=== PATIENT | female | born 1950 | race Caucasian/White ===

== ENCOUNTER → 2016-08-03 | Outpatient (CLI) | payer MEDICARE, OTHER ==
--- NOTE | 2016-08-03 17:08 | BD ---
EXAMINATION TYPE: MG DEXA axial skeleton. DATE OF EXAM: 08/03/2016 COMPARISON: 2012 CLINICAL HISTORY: post menopausal Height: 5'1 1/2 Weight: 184 FRAX RISK QUESTIONS: Alcohol (3 or more units per day): no Family History (Parent hip fracture): no Glucocorticoids (More than 3mos): no (Ex: prednisone, prednisolone, methylprednisolone, dexamethasone, and hydrocortisone). History of Fracture in Adulthood: no Secondary Osteoporosis: 1. Type 1 Diabetes: no 2. Hyperthyroidism: no 3. Menopause before 45: no 4. Malnutrition: no 5. Chronic liver disease: no Rheumatoid Arthritis: no Current Tobacco Use: no RISK FACTORS HISTORY OF: Postmenopausal woman: MEDICATIONS: Thyroid Medications: Which medication: Synthroid How Lon years Additional Medications: blood pressure, acid reflux Additional History: post menopausal, breast cancer 2012 EXAM MEASUREMENTS: Bone mineral densitometry was performed using the [employer] System. Bone mineral density as measured about the Lumbar spine is: ----- L1-L4(G/cm2): 1.204 T Score Values are as follows: ----- L2: -0.7 ----- L3: 0.0 ----- L4: 0.9 ----- L1-L4: 0.2 Bone mineral density has: Increased 2.6% since study of: 07/11/2012 Bone mineral density about the R hip (g/cm2): 0.935 Bone mineral density about the L hip (g/cm2): 0.924 T Score values are as follows: -----R Neck: -0.7 -----L Neck: -0.8 -----R Total: 0.1 -----L Total: 0.3 Bone mineral density has: Increased 2.8% since study of: 07/11/2012 IMPRESSION: Normal (Values between +1 and -1 indicate normal bone mass). Consider repeating this study in 5 year s or sooner if there is some new clinical indication. NOTE: T-SCORE=SD OF THE YOUNG ADULT MEAN.
== END | disposition home or self-care (01) ==
LOC: RADBDWWP 07:31
PROVIDERS: ATTEND Obstetrics & Gynecology
DX: N95.1 Menopausal and female climacteric states (principal)
CPT/HCPCS: 77080

== ENCOUNTER → 2016-08-18 | Outpatient (CLI) | payer MEDICARE, OTHER ==
--- NOTE | 2016-08-18 08:53 | CT ---
EXAMINATION TYPE: CT shoulder LT wo con DATE OF EXAM: 08/18/2016 COMPARISON: NONE HISTORY: Lt shoulder pain, no known injury CT DLP: [address] of the left shoulder with reconstruction imaging. TECHNIQUE: Unenhanced CT of the left shoulder was performed with bone and soft tissue window settings submitted in the axial coronal and sagittal planes. At a separate workstation 3-D TR imaging was ob tained. FINDINGS: I do not see evidence for fracture or dislocation. Subacromial spurring is noted resulting in impingement. AC joint arthropathy with mild spurring and a vacuum changes seen. Mild spur formati on involving the greater humeral tuberosity. Glenohumeral joint space is well-preserved. No obvious rotator cuff abnormality seen on CT. MRI is much more sensitive and specific to rotator cuff pathol ogy. No soft tissue masses appreciated. Visualized portions of the right lung demonstrate right api rohith scarring. IMPRESSION: 1. AC joint arthropathy with subacromial spurring resulting in a degree of impingement. No evidence f or fracture or dislocation or bony lesion.
== END | disposition home or self-care (01) ==
LOC: RADCTMAIN 08:05
PROVIDERS: ATTEND Orthopaedic Surgery
DX: M75.42 Impingement syndrome of left shoulder (principal); M75.92 Shoulder lesion, unspecified, left shoulder; M12.812 Other specific arthropathies, not elsewhere classified, left shoulder

== ENCOUNTER → 2016-11-24 | Outpatient (CLI) | payer MEDICARE, OTHER ==
--- NOTE | 2016-11-24 07:48 | US ---
EXAMINATION TYPE: US abdomen complete DATE OF EXAM: 11/24/2016 COMPARISON: NONE CLINICAL HISTORY: R10 Abd pain, K59.00 Constipation. larger habitus EXAM MEASUREMENTS: Liver Length: 14.3 cm Gallbladder Wall: 0.3 cm CBD: 0.6 cm Spleen: 9.1 cm Right Kidney: 9.4 x 4.0 x 5.1 cm Left Kidney: 11.2 x 5.0 x 4.3 cm Pancreas: Pancreatic head and tail are not well visualized due to overlying bowel gas Liver: wnl Gallbladder: wnl Evidence for sonographic Staley's sign: no CBD: wnl Spleen: wnl Right Kidney: wnl Left Kidney: wnl Upper IVC: wnl as seen Abd Aorta: wnl as seen The liver is homogenous. The intrahepatic portion of the IVC and proximal abdominal aorta are within normal limits. There is no evidence of cholelithiasis. Common bile duct is unremarkable. The visu alized portions of the pancreas are homogenous. The spleen is unremarkable. Kidneys are symmetric a nd free of hydronephrosis. No renal lesions are seen. IMPRESSION: Unremarkable abdominal ultrasound other than limited visualization of the pancreas due to overlying bowel gas.
== END | disposition home or self-care (01) ==
LOC: RADUSWWP 06:45
PROVIDERS: ATTEND Family Medicine
DX: R10.9 Unspecified abdominal pain (principal)
CPT/HCPCS: 76700

== ENCOUNTER → 2017-06-10 | Outpatient (CLI) | payer MEDICARE, OTHER ==
[2017-06-10 17:40] LABS: Albumin 4.1 g/dL (3.5-5.0); Calcium 9.6 mg/dL (8.4-10.2); Potassium 3.2 mmol/L (3.5-5.1); Total Bilirubin 0.5 mg/dL (0.2-1.3); Total Protein 6.7 g/dL (6.3-8.2)
== END | disposition home or self-care (01) ==
LOC: LABWHC1 16:38
PROVIDERS: ATTEND Internal Medicine Clinical Cardiac Electrophysiology
DX: E78.2 Mixed hyperlipidemia (principal)
CPT/HCPCS: 36415; 80053; 80061; 83690

== ENCOUNTER 2018-03-17 07:14 | Day surgery (SDC) | payer MEDICARE, OTHER ==
[2018-03-15 10:59] VITALS: BMI 34.0
[~2018-03-17 07:14] MED LIST: LACTATED RINGERS 1,000 ML IV SCH
[2018-03-17] MEDS ORDERED: LIDOCAINE 1% 20 ML VIAL (10MG/ML) FOR IV START INTRADERMA ONE (07:39)
[2018-03-17 07:43] VITALS: RESP 16; TEMP 98.7
[2018-03-17] MEDS ORDERED: PROPOFOL 10 MG/ML 20 ML VIAL IV ONE (08:08)
--- NOTE | 2018-03-17 08:10 | P.GSHP ---
History of Present Illness H&P Date: 03/17/18 Chief Complaint: GERD Patient here today for upper endoscopy. She has a history of previous hiatal hernia repair with possible Kasandra fundoplication. Patient has ongoing reflux however. Denies dysphagia. No rectal bleeding. Past Medical History Past Medical History: Asthma, Cancer, GERD/Reflux, Hypertension Additional Past Medical History / Comment(s): BREAST CA 2012; LT EYE SKIN CA. INCR HEARTBURN, PAIN IN UPPER ABD. History of Any Multi-Drug Resistant Organisms: None Reported Past Surgical History: Breast Surgery, Section, Hysterectomy Additional Past Surgical History / Comment(s): C-S X3. LUMPECTOMY/PARTIAL MASTECTOMY LT BREAST. LT EYE GRAFT SURGERY. HIATAL HERNIA PROC. Past Anesthesia/Blood Transfusion Reactions: Previous Problems w/ Anesthesia Additional Past Anesthesia/Blood Transfusion Reaction / Comment(s): HEART STOPPED X1. Smoking Status: Former smoker - Past Family History Mother Family Medical History: Cancer Additional Family Medical History / Comment(s): PANCREATIC Father Family Medical History: Cancer Medications and Allergies Home Medications Medication Instructions Recorded Confirmed Type Albuterol Sulfate [Proair Hfa] 1 - 2 puff INHALATION Q6HR PRN 03/15/18 03/17/18 History DULoxetine HCL [Cymbalta] 60 mg PO HS 03/15/18 03/17/18 History LORazepam [Ativan] 0.5 mg PO BID PRN 03/15/18 03/17/18 History Levothyroxine Sodium [Synthroid] 25 mcg PO DAILY 03/15/18 03/17/18 History Losartan [Cozaar] 50 mg PO HS 03/15/18 03/17/18 History Pantoprazole Sodium [Protonix] 40 mg PO DAILY 03/15/18 03/17/18 History Spironolactone [Aldactone] 12.5 mg PO DAILY 03/15/18 03/17/18 History Zolpidem [Ambien] 10 mg PO HS PRN 03/15/18 03/17/18 History Allergies Allergy/AdvReac Type Severity Reaction Status Date / Time levofloxacin [From Levaquin] Allergy BONES FELT Verified 03/17/18 07:30 WEAK Penicillins Allergy Swelling Verified 03/17/18 07:30 THROAT, HIVES Surgical - Exam Vital Signs Temp Pulse Resp BP Pulse Ox 98.7 F 89 16 126/93 94 L 01/25/19 07:42 03/17/18 07:42 03/17/18 07:42 03/17/18 07:42 03/17/18 07:42 Physical exam: General: Well-developed, well-nourished HEENT: Normocephalic, sclerae nonicteric Abdomen: Nontender, nondistended Extremities: No edema Neuro: Alert and oriented Assessment and Plan (1) GERD (gastroesophageal reflux disease) Narrative/Plan: Will proceed with upper endoscopy at this time Current Visit: Yes Status: Acute Code(s): K21.9 - GASTRO-ESOPHAGEAL REFLUX DISEASE WITHOUT ESOPHAGITIS SNOMED Code(s): 672069404
--- NOTE | 2018-03-17 08:22 | P.PCN ---
Date of Procedure: 03/17/18 Procedure(s) Performed: Preoperative Dx: GERD Postoperative Dx: Recurrent hiatal hernia, mild gastritis Procedure: EGD with Bx Anesthesia: Sedation Endoscopist: Dr. Alcazar Specimens: Antrum Endoscopic Procedure: The patient was on the endoscopy table in the left decubitus position. The Olympus gastroscope was inserted into the oropharynx and passed under direct visualization to the region of the third portion of the duodenum. From that point the scope was slowly withdrawn inspecting all surfaces carefully. There were no neoplastic inflammatory or polypoid lesions throughout the duodenum. The pylorus was widely patent. The stomach was carefully inspected. There was mild gastritis present. A biopsy of the antrum took place to rule out H. pylori. Retroflexion revealed a recurrent hiatal hernia. There did appear to be some subtle twisting motion of the mucosa to suggest possible previous fundoplication. There was no significant narrowing at that site however. The Z line was 2-3 cm proximal to the diaphragmatic hiatus. The distal esophagus appeared normal. The remainder the esophagus likewise appeared normal. The patient was then taken to the recovery room in stable condition per anesthesia guidelines. Recommendations: Await biopsy results. Continue antiacid therapy.
[2018-03-17 08:53] VITALS: BP 114/65; PULSE 81
== END 2018-03-17 09:09 | disposition home or self-care (01) ==
LOC: ORWHC2ENDO 07:14
PROVIDERS: ATTEND Surgery
DX: K29.50 Unspecified chronic gastritis without bleeding (principal); K21.9 Gastro-esophageal reflux disease without esophagitis; I10 Essential (primary) hypertension; J45.909 Unspecified asthma, uncomplicated; F32.9 Major depressive disorder, single episode, unspecified; E03.9 Hypothyroidism, unspecified; K44.9 Diaphragmatic hernia without obstruction or gangrene; F39 Unspecified mood [affective] disorder; Z85.3 Personal history of malignant neoplasm of breast; Z87.891 Personal history of nicotine dependence; Z88.0 Allergy status to penicillin; Z88.1 Allergy status to other antibiotic agents; Z90.12 Acquired absence of left breast and nipple; Z88.5 Allergy status to narcotic agent; Z79.890 Hormone replacement therapy; Z79.1 Long term (current) use of non-steroidal anti-inflammatories (NSAID); Z79.899 Other long term (current) drug therapy; Z85.828 Personal history of other malignant neoplasm of skin; Z88.3 Allergy status to other anti-infective agents
CPT/HCPCS: 88305; 43239; J2704

== ENCOUNTER → 2018-07-13 | Outpatient (CLI) | payer MEDICARE, OTHER ==
[2018-07-13 18:03] LABS: Anion Gap 8.4 mmol/L (4.00-12.00); Calcium 9.1 mg/dL (8.7-10.3); Carbon Dioxide 23.6 mmol/L (21.6-31.8); LDL Cholesterol,Calculated 82.4 mg/dL (0.0-131.0); Magnesium 1.6 mg/dL (1.5-2.4); Potassium 4.6 mmol/L (3.5-5.5); VLDL Calculation 17.6 mg/dL (5.00-40.00)
== END | disposition home or self-care (01) ==
LOC: LABWHC1 10:25
PROVIDERS: ATTEND Nurse Practitioner Adult Health
DX: E78.5 Hyperlipidemia, unspecified (principal); I10 Essential (primary) hypertension
CPT/HCPCS: 36415; 80048; 80061; 83735

== ENCOUNTER → 2019-11-27 | Day surgery (SDC) | payer MEDICARE, OTHER ==
[2019-11-23 13:21] VITALS: BMI 34.0
[~2019-11-27] MED LIST changes: +LIDOCAINE 1% (10MG/ML) FOR IV START INTRADERMA ONE; +LIDOCAINE 1% INJ 10MG/ML (20 ML MDV) ONE; +PROPOFOL 10 MG/ML 20 ML VIAL IV ONE
[2019-11-27 09:24] VITALS: TEMP 97.2
--- NOTE | 2019-11-27 10:50 | P.PCN ---
Date of Procedure: 11/27/19 Procedure(s) Performed: PREOPERATIVE DIAGNOSIS: GERD, screening POSTOPERATIVE DIAGNOSIS: Small hiatal hernia, mild gastritis, diverticulosis, tortuous colon with poor prep otherwise normal PROCEDURE: 1. EGD with biopsy 2. Colonoscopy ANESTHESIA: MAC SURGEON: Chidi Alcazar M.D. SPECIMENS: Antrum ENDOSCOPIC PROCEDURE: The patient was on the endoscopy table in the left decubitus position. The Olympus gastroscope was inserted into the oropharynx and passed under direct visualization to the region of the third portion of the duodenum. From that point the scope was slowly withdrawn inspecting all surfaces carefully. There were no neoplastic inflammatory or polypoid lesions throughout the duodenum. The pylorus was widely patent. The stomach was carefully inspected. There was mild gastritis present. A biopsy of the antrum took place to rule out H. pylori. Retroflexion revealed a small hiatal hernia. The esophagus was then carefully examined. There were no neoplastic inflammatory or polypoid lesions throughout the visualized esophagus. The patient was kept on the endoscopy table in the left decubitus position. The Olympus colonoscope was inserted into the anus and passed under direct visualization to the base of the cecum. The appendiceal orifice was visualized. From that point the scope was slowly withdrawn inspecting all surfaces carefully. There were no neoplastic inflammatory or polypoid lesions throughout the cecum, ascending, transverse, descending, sigmoid and rectum. There was mild to moderate left sided diverticulosis noted. The patient's prep overall was suboptimal and she had significant tortuosity. Full evaluation mucosal was somewhat limited. Digital rectal examination was normal. The patient was taken to the recovery room in stable condition per anesthesia guidelines. RECOMMENDATIONS: Resume diet. Continue antiacid therapy. Follow-up upper and lower endoscopy 5 years.
[2019-11-27 10:53] VITALS: BP 124/88; PULSE 84; RESP 17
== END ==
LOC: ORWHC2ENDO 08:45
PROVIDERS: ATTEND Surgery
DX: Z12.11 Encounter for screening for malignant neoplasm of colon (principal); K57.30 Diverticulosis of large intestine without perforation or abscess without bleeding; Q43.8 Other specified congenital malformations of intestine; K29.50 Unspecified chronic gastritis without bleeding; K44.9 Diaphragmatic hernia without obstruction or gangrene; Z86.010 Personal history of colon polyps; Z80.3 Family history of malignant neoplasm of breast; K21.9 Gastro-esophageal reflux disease without esophagitis; Z85.3 Personal history of malignant neoplasm of breast; I10 Essential (primary) hypertension; I42.9 Cardiomyopathy, unspecified; E78.5 Hyperlipidemia, unspecified; F41.9 Anxiety disorder, unspecified; E03.9 Hypothyroidism, unspecified; F32.9 Major depressive disorder, single episode, unspecified; Z98.891 History of uterine scar from previous surgery; Z90.710 Acquired absence of both cervix and uterus; Z98.890 Other specified postprocedural states; Z87.891 Personal history of nicotine dependence; Z79.890 Hormone replacement therapy; Z79.899 Other long term (current) drug therapy; Z88.5 Allergy status to narcotic agent; Z88.1 Allergy status to other antibiotic agents; Z88.0 Allergy status to penicillin
CPT/HCPCS: 88305; 43239; J2001; J2704; G0105; 45378

== ENCOUNTER → 2020-05-29 | Outpatient (CLI) | payer MEDICARE, OTHER ==
--- NOTE | 2020-05-29 17:46 | CONS ---
CONSULTATION DATE OF SERVICE: 05/29/2020 This 69-year-old lady has been evaluated in the sleep center for possible obstructive sleep apnea-hypopnea syndrome. HISTORY OF PRESENT ILLNESS/SLEEP-WAKE EVALUATION: Patient's usual sleep schedule is from 10 p.m. to 6 or 8 a.m. Sometimes she has problems with falling asleep, although no TV in the bedroom. She usually sleeps on the side position with loud snoring witnessed by her and awakenings from sleep 3 times with nocturia, dry mouth, episodes of palpitation and heartburn. The patient also has a history of restless leg symptoms, sleeptalking and sweating during sleep. On the following day, the patient falls asleep during the day, has episodes of irritability and anxiety. [place] Sleepiness Scale is 7. PAST MEDICAL HISTORY: Positive for history of hypertension, hypertrophic cardiomyopathy, asthma, headaches, left breast carcinoma, hypothyroidism, acid reflux. PAST SURGICAL HISTORY: Bilateral cataract surgery, left mastectomy in 2016, C-sections. MEDICATIONS: 1. Synthroid 25 mcg once a day. 2. Spironolactone 25 mcg half tablet daily. 3. Duloxetine 25 mg once a day. 4. Metoprolol 50 mg once a day. 5. Pantoprazole 40 mg once a day. 6. Atorvastatin 10 mg once a day. 7. Zolpidem 10 mg at nighttime. 8. Lorazepam 1 mg on an as-needed basis. 9. Ventolin inhaler. SOCIAL HISTORY: Positive for smoking; quit 20 years ago. Alcohol consumption: None. FAMILY HISTORY: Heart problems. REVIEW OF SYSTEMS: Awakenings from sleep with nocturia, episodes of sleepiness during the day, loud snoring. PHYSICAL EXAMINATION: GENERAL: A pleasant lady without distress. VITAL SIGNS: BP 131/87, HR 88, RR 15, height 5 feet 1 inch, weight 207.4, temperature 98.6, oxygen saturation at room air 97%. HEENT: PERRLA, EOMI. Evaluation of oropharynx showed tongue protrudes midline. Extremely low position of soft palate. Mallampati IV. NECK: Supple. No JVD. Thyroid is not palpable. Neck is wide; 18 inches in circumference. LUNGS: Clear to percussion and to auscultation. Good air exchange. No wheezing or rhonchi. HEART: S1, S2 regular. No murmurs, gallops or rubs. ABDOMEN: Obese. EXTREMITIES: No clubbing or cyanosis. FLESHING MACHINE OPERATOR: Awake, alert, and oriented X3. Cranial nerves 2 to 7 intact. There is no fasciculation or atrophy. noted. No focal deficits observed. IMPRESSION: 1. Loud snoring, awakenings from sleep with nocturia, extremely low position of soft palate, Mallampati IV, wide neck at 18 inches in circumference; obstructive sleep apnea-hypopnea syndrome. 2. Hypertension. 3. History of HCM. 4. Asthma. 5. Headaches. 6. History of left breast carcinoma, status post mastectomy. 7. Hypothyroidism. 8. Acid reflux. 9. Restless leg symptoms. 10.Status post bilateral cataract surgery. 11.Status post C-sections. PLAN: 1. Polysomnography for evaluation of patient's breathing during sleep. 2. CPAP/BiPAP titration if sleep study confirms obstructive sleep apnea-hypopnea syndrome. 3. Preferable position during sleep on the side. 4. No driving if patient feels any sleepiness. 5. I will see patient for follow up visit to explain results of testing and following plan. Thank you very much for referring this patient for consultation. Sincerely, Martin Collier MD, PhD, FAASM Diplomat of [place] [employer] [place] [employer] [facility] [place] MMODL / CYNTHIAN: [id number] /
== END | disposition home or self-care (01) ==
LOC: SLEEP 16:13
PROVIDERS: ATTEND Internal Medicine
DX: G47.33 Obstructive sleep apnea (adult) (pediatric) (principal); I10 Essential (primary) hypertension; J45.909 Unspecified asthma, uncomplicated; R51.9 Headache, unspecified; E03.9 Hypothyroidism, unspecified; K21.9 Gastro-esophageal reflux disease without esophagitis; G25.81 Restless legs syndrome; G47.69 Other sleep related movement disorders; Z85.3 Personal history of malignant neoplasm of breast; Z90.12 Acquired absence of left breast and nipple; Z86.79 Personal history of other diseases of the circulatory system; Z98.42 Cataract extraction status, left eye; Z98.41 Cataract extraction status, right eye; Z79.890 Hormone replacement therapy; Z79.899 Other long term (current) drug therapy; Z79.891 Long term (current) use of opiate analgesic
CPT/HCPCS: 99211

== ENCOUNTER → 2020-09-26 | Outpatient (CLI) | payer MEDICARE, OTHER ==
[2020-09-26 10:39] LABS: HCT 47.7 % (34.0-46.0); HGB 15.9 gm/dL (11.4-16.0); MCH 32.5 pg (25.0-35.0); MCHC 33.4 g/dL (31.0-37.0); MCV 97.4 fL (80.0-100.0); Mean Platelet Volume 7.8; Platelet Count 166 k/uL (150-450); RDW 13.1 % (11.5-15.5); WBC 7.6 k/uL (3.8-10.6)
[2020-09-26 10:50] LABS: Potassium 4.1 mmol/L (3.5-5.1)
== END | disposition home or self-care (01) ==
LOC: LABPAT 10:11
PROVIDERS: ATTEND Internal Medicine
DX: Z01.812 Encounter for preprocedural laboratory examination (principal); R94.39 Abnormal result of other cardiovascular function study
CPT/HCPCS: 80051; 82565; 84520; 85027

== ENCOUNTER 2020-09-29 10:17 | Day surgery (SDC) | payer MEDICARE, OTHER ==
[2020-09-26 11:56] VITALS: BMI 34.0
[~2020-09-29 10:17] MED LIST changes: +ALPRAZolam 0.25 MG TAB PO PRN; +ALPRAZolam 0.5 MG TAB PO PRN; +ASPIRIN 325 MG TAB PO ONE; +HEPARIN SODIUM,PORCINE 10,000 UNIT in SODIUM CHLORIDE 0.9% 1,000 ML IRRIGATION PRN; +HEPARIN SODIUM,PORCINE 2,500 UNIT in SODIUM CHLORIDE 0.9% 250 ML IRRIGATION PRN; -LACTATED RINGERS 1,000 ML IV SCH; -LIDOCAINE 1% (10MG/ML) FOR IV START INTRADERMA ONE; -LIDOCAINE 1% INJ 10MG/ML (20 ML MDV) ONE; +NITROGLYCERIN SL TABS 0.4 MG TAB SUBLINGUAL PRN; -PROPOFOL 10 MG/ML 20 ML VIAL IV ONE; +SODIUM CHLORIDE 0.9% 1,000 ML in EMPTY BAG 1 BAG IV ONE
[2020-09-29] MEDS ORDERED: SODIUM CHLORIDE 0.9% 1,000 ML IV ONE (10:45)
[2020-09-29 10:48] VITALS: RESP 16; TEMP 97.6
[2020-09-29] MEDS ORDERED: VERAPAMIL 2.5 MG/ML 2 ML AMP ONE (10:51)
[2020-09-29] MEDS ORDERED: HEPARIN SODIUM 1,000 UN/ML (10ML VL) ONE (10:51)
[2020-09-29] MEDS ORDERED: LIDOCAINE 1% INJ 10MG/ML (20 ML MDV) ONE (10:51)
[2020-09-29] MEDS ORDERED: fentaNYL (PF) 50 MCG/ML 2 ML AMP ONE (10:52)
[2020-09-29] MEDS ORDERED: MIDAZOLAM 2 MG/2 ML VIAL IV ONE (11:40)
[2020-09-29] MEDS ORDERED: fentaNYL (PF) 50 MCG/ML 2 ML AMP IV ONE (11:40)
[2020-09-29] MEDS ORDERED: LIDOCAINE 1% INJ 10MG/ML (20 ML MDV) SQ ONE (11:41)
[2020-09-29] MEDS ORDERED: VERAPAMIL SYRINGE (5 MG/10 ML) INTRAARTER ONE (11:55)
[2020-09-29] MEDS ORDERED: HEPARIN SODIUM 1,000 UN/ML (10ML VL) IV ONE (11:56)
[2020-09-29] MEDS ORDERED: IOPAMIDOL-370 125ML BTL INJ ONE (12:03)
[2020-09-29] MEDS ORDERED: RX INFO: IV CONTRAST WAS GIVEN 1 EACH MISC MISCELLANE PRN (12:34)
--- NOTE | 2020-09-29 12:34 | P.CARDCATH ---
Description of Procedure: PROCEDURES PERFORMED: Left heart catheterization, bilateral coronary angiography INDICATION: Abnormal stress test HISTORY: Patient is a pleasant 70-year-old female with history of hypertension, hyperlipidemia, GERD who presents with chest pain as well as upset stomach, difficulty swallowing, feeling nauseous. She did have a stress test which showed inducible inferior and inferior lateral ischemia. Therefore recommendation was to perform left heart catheterization. CONSENT:I have discussed the risks, benefits and alternative therapies for the above-mentioned procedure and for both sedation/analgesia as well as necessary blood product administration, if indicated, as they pertain to this patient. The patient has indicated understanding and acceptance of the risks and procedures discussed. PROCEDURE: After the risks, benefits and alternatives of the above mentioned procedure explained in detail with the patient, informed consent was obtained. Patient was taken to the catheterization lab and prepped and draped in usual fashion. 1% lidocaine was used to anesthetize the right radial artery. A 6- Palauan sheath was placed in the right radial artery using modified Seldinger technique and ultrasound. Left coronary angiography was performed with a 5- Palauan JL 3.5 catheter and right coronary angiography was performed with a 5- Palauan JR5 catheter in various views. A 5-Palauan FR5 catheter was inserted into the left ventricle and pressure measurements were obtained. The right radial sheath was removed and a TR band was placed with hemostasis achieved. The patient tolerated the procedure well. Patient was transported back to the post catheterization holding area in stable condition. Conscious Sedation: Patient was monitored under the direct supervision of vision of myself for conscious sedation using Versed and fentanyl for a total duration of 23 minutes HEMODYNAMICS: Ao: 132/78 LV: 128/1, LVEDP 6 SELECTIVE CORONARY ARTERIOGRAPHY: LEFT MAIN: The left main is a large caliber vessel which bifurcates into the LAD and circumflex. There is no significant stenosis. LEFT ANTERIOR DESCENDING CORONARY ARTERY: LAD is a large caliber vessel which wraps around to the apex. There is a mid LAD 20-30% stenosis and otherwise is normal. LEFT CIRCUMFLEX CORONARY ARTERY: Left circumflex is a moderate caliber vessel without significant stenosis. RIGHT CORONARY ARTERY: The right coronary artery is a large caliber vessel which gives off a PDA and PLV branch and is the dominant vessel. There are mild lum inal irregularities. FINAL IMPRESSION: 1. Mild CAD as described above with only mild luminal irregularities of the RCA and LAD 20-30% stenosis 2. Normal left ventricular filling pressures PLAN: 1. Aggressive risk factor modification per most recent ACC/AHA guidelines. 2. Follow-up in the office in 1-2 weeks.
[2020-09-29 16:21] VITALS: BP 119/69; PULSE 74
== END 2020-09-29 16:18 | disposition home or self-care (01) ==
LOC: CATHCVL 10:17
PROVIDERS: ATTEND Internal Medicine
DX: I25.10 Atherosclerotic heart disease of native coronary artery without angina pectoris (principal)
CPT/HCPCS: 93458; C1769; C1894; J2250; J2001; J3010; J1644; Q9967

== ENCOUNTER → 2020-10-23 | Outpatient (CLI) | payer MEDICARE, OTHER ==
--- NOTE | 2020-10-24 12:25 | BD ---
EXAMINATION TYPE: Axial Bone Density DATE OF EXAM: 10/23/2020 COMPARISON: 08.03.2016 CLINICAL HISTORY: 70 YR OLD FEMALE.......ICD-10 CODE: N95.1 POST MENOPAUSAL Height: 60.2 Weight: 200 FRAX RISK QUESTIONS: Glucocorticoids (More than 3mos): YES (Ex: prednisone, prednisolone, methylprednisolone, dexamethasone, and hydrocortisone). RISK FACTORS HISTORY OF: Postmenopausal woman: YES, TOTAL HYST AT AGE 47 YRS OLD Take estrogen and/or progesterone medications: YES, FOR 2-3 YRS, THEN STOPPED DEVELOPED BR CANCER, LT Hyperparathyroidism: NO Adrenal Insufficiency: NO MEDICATIONS: Prednisone or other steroids: YES, FOR ASTHMA FOR MANY YRS Thyroid Medications: YES, SYNTHROID FOR ABOUT 15 YRS Additional Medications: REFLUX MED, STATIN FOR CHOLESTEROL, BP MEDS, HX OF RADIATION, CYMBALTA, OTC V ITAMINS Additional History: REFLUX, CHOLESTEROL, LT BR CANCER, THYROID, ASTHMA, AND MILD DEPRESSION/ANXIETY, ARTHRITIS EXAM MEASUREMENTS: Bone mineral densitometry was performed using the [employer] System. Bone mineral density as measured about the Lumbar spine is: ----- L1-L4(G/cm2): 1.136 T Score Values are as follows: ----- L1: -0.5 ----- L2: -0.6 ----- L3: -0.8 ----- L4: 0.2 ----- L1-L4: -0.4 Bone mineral density has: Decreased -4.8% since study of: 08.03.2016 Bone mineral density about the R hip (g/cm2): 0.980 Bone mineral density about the L hip (g/cm2): 1.010 T Score values are as follows: -----R Neck: -0.5 -----L Neck: -1.1 -----R Total: -0.2 -----L Total: 0.0 Bone mineral density has: Decreased -3.7% since study of: 08.03.2016 FRAX%s: THERE IS A 12.8% CHANCE FOR A MAJOR OSTEOPOROTIC FX AND A 1.6% FOR HIP.......PROBABILITY FOR FX IN 10 YRS TIME IMPRESSION: Osteopenia (T Score between -2.5 and -1). There is slightly increased risk of fracture and the patient may be considered for treatment. Re-Screen 2-5 years. NOTE: T-SCORE=SD OF THE YOUNG ADULT MEAN.
== END | disposition home or self-care (01) ==
LOC: RADBDWWP 12:30
PROVIDERS: ATTEND Obstetrics & Gynecology
DX: N95.1 Menopausal and female climacteric states (principal); M85.80 Other specified disorders of bone density and structure, unspecified site
CPT/HCPCS: 77080

== ENCOUNTER → 2020-11-03 | Outpatient (CLI) | payer MEDICARE, OTHER ==
--- NOTE | 2020-11-04 07:44 | CT ---
EXAMINATION TYPE: CT abdomen pelvis w con DATE OF EXAM: 11/03/2020 HISTORY: Nausea/vomiting CT DLP: 1404.50mGycm Automated Exposure Control for Dose Reduction was Utilized. CONTRAST: CT scan of the abdomen and pelvis is performed with IV Contrast, patient injected with 100 mL of Isov ue 300. COMPARISON: None. FINDINGS: LUNG BASES: Elevated left hemidiaphragm. LIVER/GB: Contracted gallbladder. PANCREAS: No significant abnormality is seen. SPLEEN: No significant abnormality is seen. ADRENALS: No significant abnormality is seen. KIDNEYS: No significant abnormality is seen. BOWEL: [id number] size hiatal hernia despite surgical changes at the diaphragmatic hiatus. The oral contrast reaches the level of the distal left colon. No suspicious small or large bowel dilatat ion is present. A few distal colonic diverticula. No CT evidence for acute diverticulitis. No suspici ous small and large bowel dilatation. UTERUS/ADNEXA: Uterus surgically absent or markedly atrophic. LYMPH NODES: No greater than 1cm abdominal or pelvic lymph nodes are appreciated. OSSEOUS STRUCTURES: Underlying scoliosis or positioning. OTHER: Tiny fat-containing umbilical hernia. IMPRESSION: No bowel obstruction. Recurrent small to moderate size hiatal hernia noted otherwise no s ignificant findings is seen to account for patient's clinical symptoms.
== END | disposition home or self-care (01) ==
LOC: RADCTMAIN 17:17
PROVIDERS: ATTEND Family Medicine
DX: K44.9 Diaphragmatic hernia without obstruction or gangrene (principal)
CPT/HCPCS: 82565; 84520; 74177; 36415; Q9967

== ENCOUNTER → 2021-05-25 | Outpatient (CLI) | payer MEDICARE, OTHER ==
--- NOTE | 2021-05-26 10:11 | MR ---
EXAMINATION TYPE: MR brain wo con DATE OF EXAM: 05/25/2021 COMPARISON: Prior sinus CT January 23, 2010. HISTORY: Diplopia, crossed eyes for 30 mins. TECHNIQUE: Multiplanar, multisequence imaging of the brain and brainstem is performed without IV cont rast. FINDINGS: Diffusion weighted images demonstrate no evidence of a recent infarct or other diffusion abnormality. There is mild ventricular and sulcal prominence. There are scattered focal and confluent areas of T2 hyperintensity seen throughout the white matter bilaterally. Midline structures demonstrate normal morphology. The craniocervical junction appears within normal limits. Normal vascular flow voids are present. Mild to moderate mucosal thickening left frontal sinu s. Mild to moderate coastal thickening anterior ethmoid sinuses bilaterally. Moderate mucosal thicken ing with dependent fluid in the left maxillary sinus. Globes are intact bilaterally. IMPRESSION: No MRI evidence for recent infarct. Mild diffuse cerebral atrophy and mild to moderate ch ronic small vessel ischemic change is present. Acute on chronic paranasal sinus disease noted as deta iled above.
== END | disposition home or self-care (01) ==
LOC: RADMRIMAIN 15:26
PROVIDERS: ATTEND Family Medicine
DX: H53.2 Diplopia (principal)
CPT/HCPCS: 70551

== ENCOUNTER → 2021-08-18 | Outpatient (CLI) | payer MEDICARE, OTHER ==
--- NOTE | 2021-08-19 00:26 | CT ---
EXAMINATION TYPE: CT sinus wo con DATE OF EXAM: 08/18/2021 COMPARISON: CT dated 01/23/2010 HISTORY: sinus congestion CT DLP: 440.7 mGycm. Automated Exposure Control for Dose Reduction was Utilized. TECHNIQUE: CT scan of the sinuses is performed without contrast, axial images are obtained, coronal r eformatted images are also reviewed. FINDINGS: Previous endoscopic sinus surgery with bilateral maxillary antrostomy, uncinectomy, middle turbinecto my and ethmoidectomy. Patent bilateral maxillary antrostomies. No significant mucosal thickening of t he maxillary sinuses. Thick sclerotic millard of the maxillary sinuses likely representing sequela of c hronic sinusitis. Circumferential mucosal thickening of the left frontal sinus compartment. Mucosal thickening along th e nasal septum bilaterally, mainly superiorly. Marked mucosal thickening of the left sphenoid sinus c ompartment with milder mucosal thickening of the right sphenoid sinus compartment. Associated sclerot ic millard of the sphenoid sinus denoting chronic inflammatory changes. Obstructed sphenoethmoidal recesses by mucosal thickening. Hypopneumatized mastoid air cells with opa cified the left inferior mastoid air cells. Mild degenerative changes of the right TMJ. Grossly unrem arkable with visualized portion of the brain and orbits. Grossly unremarkable nasopharynx. IMPRESSION: Chronic inflammatory changes of the paranasal sinuses with postoperative changes and other findings a s detailed above.
== END | disposition home or self-care (01) ==
LOC: RADCTMAIN 13:42
PROVIDERS: ATTEND Otolaryngology
DX: J32.9 Chronic sinusitis, unspecified (principal)
CPT/HCPCS: 70486

== ENCOUNTER → 2023-04-29 | Outpatient (CLI) | payer MEDICARE, OTHER ==
--- NOTE | 2023-05-02 16:41 | CT ---
EXAMINATION TYPE: CT brain wo con CT DLP: 1064.3 mGycm, Automated exposure control for dose reduction was used. DATE OF EXAM: 04/29/2023 9:27 AM COMPARISON: 08/18/2021 CLINICAL INDICATION:Female, 72 years old with history of R42 DIZZINESS GIDDINESS, dizziness TECHNIQUE: Brain: Axial CT images of the brain were obtained with coronal and sagittal reformats created and rev iewed. Contrast used: None. Oral contrast used: None. FINDINGS: Brain: Extra-axial spaces: No abnormal extra-axial fluid collections. Ventricular system: Within normal limits Cerebral parenchyma: Cerebral atrophy. No acute intraparenchymal hemorrhage or mass effect. The zavala -white junction is well differentiated. Scattered hypoattenuating areas are seen within the white mat ter. Cerebellum: Unremarkable. Mass effect: No evidence of midline shift. Intracranial vasculature: Atherosclerotic calcifications of the intracranial vessels. Soft tissues: Normal. Calvarium/osseous structures: No depressed skull fracture. Paranasal sinuses and mastoid air cells: Paranasal sinus mucosal thickening scattered throughout the paranasal sinuses. There is an sestamibi changes bilaterally. Opacified left mastoid air cells. Visualized orbits: Bilateral aphakia IMPRESSION: 1. No acute intracranial process. 2. Nonspecific white matter changes, likely secondary to chronic small vessel ischemic disease. 3. Postsurgical changes of sinuses with mild to moderate paranasal sinus disease. 4. Trace left mastoid air cell effusion similar prior.
== END | disposition home or self-care (01) ==
LOC: RADCTMAIN 08:27
PROVIDERS: ATTEND Family Medicine
DX: R42 Dizziness and giddiness (principal); R90.82 White matter disease, unspecified; G93.6 Cerebral edema; J32.8 Other chronic sinusitis
CPT/HCPCS: 70450

== ENCOUNTER → 2023-11-18 | Outpatient (CLI) | payer MEDICARE, OTHER ==
--- NOTE | 2023-11-18 15:51 | CT ---
EXAMINATION TYPE: CT thoracic spine wo con DATE OF EXAM: 11/18/2023 COMPARISON: None HISTORY: upper to mid back pain that radiates from the neck through both sides to shoulders. ordering requested to be left open to see sft tissue from neck to shoulder. CT DLP: 2095.60 mGycm Automated exposure control for dose reduction was used. FINDINGS: The lumbar vertebral segments are normal in height and alignment is no fracture or subluxation. The p araspinal soft tissues unremarkable. There is mild degenerative disc disease in the mid thoracic spine at multiple levels. There is no foc al disc herniation. There is no spinal stenosis. The paraspinal soft tissues are unremarkable. There are no focal intraosseous abnormalities. 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 The glenohumeral joint is well-preserve d. There is no focal osseous lesion involving the left shoulder. IMPRESSION: 1. Mild multilevel mid thoracic spine degenerative disease without lumbar spine fracture or malalignm ent 2. No thoracic disc herniation or spinal stenosis. [facility], Workstation: [id number] 11/18/2023 3:49 PM
--- NOTE | 2023-11-18 19:39 | MR ---
EXAMINATION TYPE: MR brachial plexus LT wo/w con DATE OF EXAM: 11/18/2023 5:41 PM SITE: [facility] CLINICAL INDICATION: Female, 73 years old with history of M54.12 RADICULOPATHY, CERVICAL REGION M54.2 G54.0; , [facility] COMPARISON: MRI cervical spine same day. CT 11/18/2023 TECHNIQUE: IV Contrast: 8 cc Gadavist neck pain for 3 months, lump on left brachial plexus, headaches, history of breast, and skin cancer. TECHNIQUE: Coronal T2-weighted, STIR, T1 weighted, axial STIR MR images of the neck with attention to the brachial plexus as well as sagittal T1-weighted MR images of the left brachial plexus were obtai dhaval. FINDINGS: Brachial plexus: The right brachial plexus roots, trunks, and proximal aspects of the cords are seen without any focal mass effect upon it or abnormal signal intensity compared to the left brachial plexus. No mass visua lized in the brachial plexus. No lymphadenopathy identified. Spinal cord: Visualized spinal cord is normal in caliber and signal intensity Brachial plexus: Roots: Normal Trunks: Normal Cords: Normal Branches: Normal High T2 signal within left mastoid air cells. IMPRESSION: 1. Visualized brachial plexus is grossly unremarkable extending from the nerve roots to terminal bra nches. The brachial plexus appears symmetrical. No focal mass or abnormal T2 signal is seen involving the brachial plexus. 2. Left mastoid air cell effusion. [facility], , 11/18/2023 7:36 PM
--- NOTE | 2023-11-18 19:39 | MR ---
EXAMINATION TYPE: MR cervical spine wo/w con DATE OF EXAM: 11/18/2023 5:41 PM CLINICAL INDICATION: Female, 73 years old with history of M54.12 RADICULOPATHY, CERVICAL REGION M54.2 G54.0; PH[facility], neck pain for 3 months, lump on left brachial plexus, headaches, history of breast, and skin cancer. COMPARISON: None. TECHNIQUE: Multi planar, multi sequence imaging was performed utilizing: T1-weighted, T2-weighted, an d turbo inversion recovery imaging of the cervical spine. IV Contrast: 8 cc Gadavist (none if empty) FINDINGS: Alignment: The cervical vertebral bodies have preserved heights. Alignment is within normal limits gi juni patient positioning. Bones: Bone signal is within normal limits. No abnormal bone marrow edema on inversion recovery seque nces. Cord: The spinal cord is unremarkable with regards to their signal intensity and morphology. Discs: Intervertebral disc signal is maintained. C2-C3: No significant disc pathology. The spinal canal is patent. Bilateral facet and uncovertebral joint arthropathy are present with mild bilateral neural foraminal stenosis. C3-C4: No significant disc pathology. The spinal canal is patent. Bilateral facet and uncovertebral joint arthropathy are present with mild bilateral neural foraminal stenosis. C4-C5: A disc osteophyte complex is present which minimally narrows the ventral subarachnoid space. Bilateral facet and uncovertebral joint arthropathy are present with mild bilateral neural foraminal stenosis. C5-C6: No significant disc pathology. The spinal canal is patent. Bilateral facet and uncovertebral joint arthropathy are present with mild bilateral neural foraminal stenosis. C6-C7: No significant disc pathology. The spinal canal is patent. No neural foraminal stenosis. C7-T1: No significant disc pathology. The spinal canal is patent. No neural foraminal stenosis. Other: None. IMPRESSION: 1. No evidence for disc herniation or significant spinal canal stenosis. No abnormal postcontrast enh ancement 2. Moderate disc degeneration with associated osteoarthritic changes. No evidence for significant spi nal canal or neural foraminal stenosis. 3. No evidence for lump given in history. No evidence for lymphadenopathy. [facility], , 11/18/2023 7:37 PM
--- NOTE | 2023-11-18 19:41 | CT ---
EXAMINATION TYPE: CT soft tissue neck wo con CT DLP: 2095.60 mGycm, Automated exposure control for dose reduction was used. DATE OF EXAM: 11/18/2023 3:40 PM COMPARISON: MRI same day.. CLINICAL INDICATION: Female, 73 years old with history of M54.12 RADICULOPATHY, CERVICAL REGION M54.2 G54.0; PHH, upper to mid back pain that radiates from the neck through both sides to shoulders. sam il Dr. requested to be left open to see sft tissue from neck to shoulder. TECHNIQUE: Standard enhanced CT of the neck. Axial sections with coronal and sagittal reformats were obtained. Contrast used: mL of , (None if empty) Oral contrast used: (None if empty) FINDINGS: Brain: Visualized portions are grossly unremarkable. Orbits: Unremarkable Sinuses: Grossly unremarkable. Spaces of the neck: Clear and symmetric. Musculoskeletal: No acute osseous pathology. Degenerative disc disease changes of the visualized spin e are present. Lymph nodes: Multiple nonenlarged lymph nodes are seen along both anterior chains of the neck. Vascular structures: Visualized major arteries are patent without evidence of aneurysm. Thoracic Inlet/airway: Airway is patent. The lung apices are clear. Soft tissues/Thyroid: Thyroid and remainder of the soft tissues are unremarkable. Other: none. IMPRESSION No soft tissue mass or lymphadenopathy. [facility], , 11/18/2023 7:39 PM
== END | disposition home or self-care (01) ==
LOC: RADCTMAIN 14:53
PROVIDERS: ATTEND Orthopaedic Surgery
DX: M47.22 Other spondylosis with radiculopathy, cervical region (principal); M50.30 Other cervical disc degeneration, unspecified cervical region; M48.02 Spinal stenosis, cervical region; M50.122 Cervical disc disorder at C5-C6 level with radiculopathy; M25.78 Osteophyte, vertebrae
CPT/HCPCS: 70490; 71552; 72128; 72156